=== PATIENT | female | born 1980 | race African-American/Black ===

== ENCOUNTER 2017-11-28 23:48 | Inpatient (IN) ==
[2017-11-29] MEDS ORDERED: DILTIAZEM 50 MG/10 ML VIAL IV ONE (00:10)
[2017-11-29] MEDS ORDERED: ONDANSETRON 4 MG/2 ML VIAL ONE (00:11)
[2017-11-29] MEDS ORDERED: METOPROLOL TARTRATE 5 MG/5 ML VIAL IV ONE (00:21)
[2017-11-29] MEDS ORDERED: METOPROLOL TARTRATE 5 MG/5 ML VIAL IV STA (00:22)
[2017-11-29] MEDS ORDERED: DILTIAZEM 50 MG/10 ML VIAL IV STA (00:22)
[2017-11-29] MEDS ORDERED: ONDANSETRON 4 MG/2 ML VIAL IV STA (00:22)
[2017-11-29 01:00] LABS: PT Patient Result 10.7 SECS; Partial Thromboplastin Time 24.3 SECS (0-40)
[2017-11-29 01:03] LABS: Barbiturates Screen,Urine Negative (Negative); Benzodiazepines Screen,Urine Negative (Negative); Cannabinoid Screen,Urine Negative (Negative); Opiate Screen,Urine Negative (Negative); Phencyclidine Screen,Urine Negative (Negative)
[2017-11-29 01:15] LABS: Troponin I Only 0.027 NG/ML (0.00-0.045)
[2017-11-29 01:16] LABS: Basophils % 0.1 % (0.0-0.8); Eosinophils % 0.4 % (0.00-10.9); Hematocrit 22.3 VOL% (35.7-47.0); Immature Granulocytes % 0.5 %; Immature Granulocytes Absolute 0.04 #; Lymphocytes # 1.7 10*3/uL (1.4-4.0); Lymphocytes % 21.4 % (21.3-54.2); Mean Corpuscular HGB Conc 26.5 GM/DL (32-36); Mean Corpuscular Hemoglobin 16 PG (27-34); Mean Corpuscular Volume 60.9 FL (87-102); Mean Platelet Volume 9.9 FL (9.6-12.0); Monocytes # 0.7 10*3/uL (0.11-0.8); Monocytes % 8.1 % (1.7-12.7); Neutrophils # 5.6 10*3/uL (1.4-7.4); Neutrophils % 69.5 % (38.7-73.9); Platelet Count 435 T/CUMM (130-400); Red Blood Count 3.66 MC/CUMM (3.8-5.5); Red Cell Distribution Width 21.3 % (9.3-17.3)
[2017-11-29 01:19] LABS: Alanine Aminotransferase 11 U/L (13-56); Albumin 3.2 G/DL (3.4-5.0); Alkaline Phosphatase 70 U/L (45-117); Aspartate Amino Transferase 15 U/L (0-37); Bilirubin,Total < 0.39 MG/DL (0.2-1.0); Blood Urea Nitrogen 14 MG/DL (7-18); Calcium 8.4 MG/DL (8.5-10.1); Glucose 96 MG/DL (74-106); Osmolality,Calculated 286.8 MOS/KG (273-304); Potassium 3.7 MMOL/L (3.5-5.1); Sodium 144 MMOL/L (136-145); Total Protein 7.4 G/DL (6.4-8.3)
[2017-11-29 01:22] LABS: Hemoglobin 5.9 GM/DL (12.0-16.0)
[2017-11-29 01:25] LABS: Elliptocytes 1+
[2017-11-29 01:26] LABS: Platelet Estimate Normal
[2017-11-29 01:27] LABS: Hypochromasia 2+; Microcytosis 2+; Target Cells Few
[2017-11-29 01:31] LABS: Anisocytosis 2+
[2017-11-29] MEDS ORDERED: ONDANSETRON 4 MG/2 ML VIAL IV PRN (02:41)
[2017-11-29] MEDS ORDERED: SODIUM CHLORIDE 0.9% 1,000 ML IV PRN ×2 (02:41→03:54)
[2017-11-29 07:48] LABS: Calcium 8.6 MG/DL (8.5-10.1); Osmolality,Calculated 281.3 MOS/KG (273-304); Potassium 4.2 MMOL/L (3.5-5.1)
[2017-11-29 08:04] LABS: Free T4 (Free Thyroxine) 0.88 NG/DL (0.76-1.46); Risk Ratio 1.92; Thyroid Stimulating Hormone 2.14 uIU/ml (0.358-3.74); VLDL CHOLESTEROL 14.8 MG/DL
[2017-11-29 08:34] LABS: Folate 14.6 NG/ML (5.4-24.0); Vitamin B12 369 PG/ML (211-911)
[2017-11-29] MEDS: ENOXAPARIN 40 MG/0.4 ML SYRINGE SUBCUT SCH (10:19)
[2017-11-29 11:55] LABS: Basophils % 0.1 % (0.0-0.8); Eosinophils % 0.4 % (0.00-10.9); Hematocrit 26.8 VOL% (35.7-47.0); Immature Granulocytes % 0.3 %; Immature Granulocytes Absolute 0.02 #; Lymphocytes # 1.9 10*3/uL (1.4-4.0); Lymphocytes % 26.9 % (21.3-54.2); Mean Corpuscular Hemoglobin 18 PG (27-34); Mean Corpuscular Volume 64.4 FL (87-102); Mean Platelet Volume 9.7 FL (9.6-12.0); Monocytes # 0.7 10*3/uL (0.11-0.8); Monocytes % 9.3 % (1.7-12.7); NRBC # 0.02 10*3/uL; Neutrophils # 4.5 10*3/uL (1.4-7.4); Platelet Count 453 T/CUMM (130-400); Red Blood Count 4.16 MC/CUMM (3.8-5.5); Red Cell Distribution Width 25.2 % (9.3-17.3); White Blood Count 7.2 T/CUMM (4-12)
[2017-11-29 11:58] LABS: Hemoglobin 7.5 GM/DL (12.0-16.0)
[2017-11-29] MEDS: METOPROLOL TARTRATE 25 MG TABLET PO SCH ×2 (12:08→21:54)
[2017-11-29 12:15] LABS: Eosinophils 1 % (0-10); Lymphocytes 30 % (20-55); Segmented Neutrophils 61 % (50-85); Total Cells Counted 100
[2017-11-29 12:16] LABS: Giant Platelets Few; Hypochromasia 1+; Ovalocytes Slight; Platelet Estimate Adequate
[2017-11-29 13:03] LABS: Sedimentation Rate-Westergren 38 MM/HR (0-20)
[2017-11-29] MEDS: FERROUS SULFATE 325 MG TABLET PO SCH (21:54)
[2017-11-30 05:21] LABS: Basophils % 0.2 % (0.0-0.8); Eosinophils # 0.1 10*3/uL (0.0-0.87); Eosinophils % 0.8 % (0.00-10.9); Hemoglobin 6.7 GM/DL (12.0-16.0); Immature Granulocytes % 0.6 %; Immature Granulocytes Absolute 0.04 #; Lymphocytes # 1.5 10*3/uL (1.4-4.0); Lymphocytes % 23.2 % (21.3-54.2); Mean Corpuscular HGB Conc 26.8 GM/DL (32-36); Mean Corpuscular Hemoglobin 18 PG (27-34); Mean Corpuscular Volume 65.6 FL (87-102); Mean Platelet Volume 9.7 FL (9.6-12.0); Monocytes # 0.5 10*3/uL (0.11-0.8); Monocytes % 7.6 % (1.7-12.7); NRBC # 0.02 10*3/uL; Neutrophils # 4.3 10*3/uL (1.4-7.4); Neutrophils % 67.6 % (38.7-73.9); Platelet Count 390 T/CUMM (130-400); Red Blood Count 3.81 MC/CUMM (3.8-5.5); Red Cell Distribution Width 24.5 % (9.3-17.3); White Blood Count 6.3 T/CUMM (4-12)
[2017-11-30 05:54] LABS: Calcium 7.8 MG/DL (8.5-10.1); Osmolality,Calculated 277.5 MOS/KG (273-304); Potassium 4.2 MMOL/L (3.5-5.1)
[2017-11-30 06:00] LABS: % Iron Saturation 42.9 % (18-50); Ferritin 2.2 ng/ml (8-252)
[2017-11-30 06:06] LABS: Folate 13.4 NG/ML (5.4-24.0); Vitamin B12 361 PG/ML (211-911)
[2017-11-30 07:07] LABS: Sedimentation Rate-Westergren 42 MM/HR (0-20)
[2017-11-30] MEDS ORDERED: SODIUM CHLORIDE 0.9% 1,000 ML IV PRN ×2 (08:09→09:24)
[2017-11-30] MEDS: METOPROLOL TARTRATE 25 MG TABLET PO SCH (08:59)
[2017-11-30] MEDS: FERROUS SULFATE 325 MG TABLET PO SCH ×2 (08:59→20:40)
[2017-11-30] MEDS: ENOXAPARIN 40 MG/0.4 ML SYRINGE SUBCUT SCH (08:59)
[2017-11-30] MEDS: METOPROLOL TARTRATE 50 MG TABLET PO SCH (20:40)
[2017-12-01 01:15] LABS: Basophils % 0.2 % (0.0-0.8); Eosinophils # 0.1 10*3/uL (0.0-0.87); Eosinophils % 1.3 % (0.00-10.9); Hematocrit 28.4 VOL% (35.7-47.0); Immature Granulocytes Absolute 0.08 #; Lymphocytes # 2.3 10*3/uL (1.4-4.0); Lymphocytes % 27.9 % (21.3-54.2); Mean Corpuscular HGB Conc 28.2 GM/DL (32-36); Mean Corpuscular Hemoglobin 19 PG (27-34); Mean Corpuscular Volume 67.8 FL (87-102); Mean Platelet Volume 9.9 FL (9.6-12.0); Monocytes # 0.8 10*3/uL (0.11-0.8); Monocytes % 9.9 % (1.7-12.7); NRBC # 0.02 10*3/uL; Neutrophils # 4.9 10*3/uL (1.4-7.4); Neutrophils % 59.7 % (38.7-73.9); Platelet Count 365 T/CUMM (130-400); Red Blood Count 4.19 MC/CUMM (3.8-5.5); Red Cell Distribution Width 26.3 % (9.3-17.3); White Blood Count 8.2 T/CUMM (4-12)
[2017-12-01 03:34] LABS: Eosinophils 1 % (0-10); Lymphocytes 25 % (20-55); Nucleated Red Blood Cells 1 (0-5); Platelet Estimate Normal; Segmented Neutrophils 65 % (50-85); Total Cells Counted 100
[2017-12-01 03:35] LABS: Elliptocytes Few; Hypochromasia 1+; Microcytosis 1+
[2017-12-01 06:13] LABS: Basophils % 0.3 % (0.0-0.8); Eosinophils # 0.1 10*3/uL (0.0-0.87); Eosinophils % 1.7 % (0.00-10.9); Hematocrit 27.2 VOL% (35.7-47.0); Immature Granulocytes % 0.6 %; Immature Granulocytes Absolute 0.04 #; Lymphocytes # 1.9 10*3/uL (1.4-4.0); Lymphocytes % 29.2 % (21.3-54.2); Mean Corpuscular HGB Conc 27.9 GM/DL (32-36); Mean Corpuscular Hemoglobin 19 PG (27-34); Mean Corpuscular Volume 68.9 FL (87-102); Mean Platelet Volume 10.2 FL (9.6-12.0); Monocytes # 0.6 10*3/uL (0.11-0.8); Monocytes % 8.6 % (1.7-12.7); NRBC # 0.02 10*3/uL; Neutrophils # 3.9 10*3/uL (1.4-7.4); Neutrophils % 59.6 % (38.7-73.9); Platelet Count 353 T/CUMM (130-400); Red Blood Count 3.95 MC/CUMM (3.8-5.5); Red Cell Distribution Width 26.2 % (9.3-17.3); White Blood Count 6.6 T/CUMM (4-12)
[2017-12-01 06:15] LABS: Osmolality,Calculated 281.3 MOS/KG (273-304); Potassium 4.1 MMOL/L (3.5-5.1)
[2017-12-01 06:21] LABS: Hemoglobin 7.6 GM/DL (12.0-16.0)
[2017-12-01 06:42] LABS: Eosinophils 1 % (0-10); Hypochromasia 1+; Lymphocytes 29 % (20-55); Microcytosis 2+; Platelet Estimate Normal; Segmented Neutrophils 68 % (50-85); Total Cells Counted 100
[2017-12-01 06:43] LABS: Elliptocytes Few; Polychromasia Slight
[2017-12-01] MEDS: ENOXAPARIN 40 MG/0.4 ML SYRINGE SUBCUT SCH (08:04)
[2017-12-01] MEDS: METOPROLOL TARTRATE 50 MG TABLET PO SCH ×2 (08:04→22:02)
[2017-12-01] MEDS: FERROUS SULFATE 325 MG TABLET PO SCH ×3 (08:04→22:02)
[2017-12-01] MEDS: amLODIPine 5 MG TABLET PO SCH (12:07)
[2017-12-01] MEDS ORDERED: ACETAMINOPHEN 325 MG TABLET PO PRN (13:04)
[2017-12-01] MEDS ORDERED: SODIUM CHLORIDE 0.9% 1,000 ML IV PRN (14:21)
[2017-12-01] MEDS: LISINOPRIL 10 MG TABLET PO SCH (15:52)
[2017-12-01] MEDS ORDERED: rOPINIRole 0.25 MG TABLET PO SCH (21:00)
[2017-12-01] MEDS: ASCORBIC ACID 500 MG TABLET PO SCH (22:02)
[2017-12-02 05:19] LABS: Hematocrit 30.8 VOL% (35.7-47.0)
[2017-12-02 05:57] LABS: Thyroid Stimulating Hormone 2.3 uIU/ml (0.358-3.74)
[2017-12-02] MEDS: amLODIPine 5 MG TABLET PO SCH (08:13)
[2017-12-02] MEDS: METOPROLOL TARTRATE 50 MG TABLET PO SCH (08:13)
[2017-12-02] MEDS: ASCORBIC ACID 500 MG TABLET PO SCH (08:13)
[2017-12-02] MEDS: FERROUS SULFATE 325 MG TABLET PO SCH ×2 (08:13→15:30)
[2017-12-02] MEDS: LISINOPRIL 10 MG TABLET PO SCH (08:13)
[2017-12-02 15:58] VITALS: BP 192/98
[2017-12-02] MEDS ORDERED: LOSARTAN 50 MG TABLET PO SCH (21:00)
[2017-12-03] MEDS ORDERED: LISINOPRIL 20 MG TABLET PO SCH (09:00)
== END 2017-12-02 15:44 | disposition home or self-care (01) | DRG 309 ==
LOC: N.ED 23:48 → N.EDINP 11-29 02:42 → N.TELEN 11-29 03:28
PROVIDERS: ADMIT Hospitalist; ATTEND Hospitalist

== ENCOUNTER 2018-09-30 18:39 | Inpatient (IN) ==
[2018-09-30 19:43] LABS: Basophils % 0.2 % (0.0-0.8); Eosinophils % 0.2 % (0.00-10.9); Hematocrit 21.3 VOL% (35.7-47.0); Immature Granulocytes % 0.8 %; Immature Granulocytes Absolute 0.08 #; Lymphocytes # 1.6 10*3/uL (1.4-4.0); Lymphocytes % 15.8 % (21.3-54.2); Mean Corpuscular HGB Conc 25.8 GM/DL (32-36); Mean Corpuscular Hemoglobin 16 PG (27-34); Mean Corpuscular Volume 60.3 FL (87-102); Mean Platelet Volume 9.5 FL (9.6-12.0); Monocytes # 0.5 10*3/uL (0.11-0.8); Monocytes % 5.4 % (1.7-12.7); Neutrophils # 7.6 10*3/uL (1.4-7.4); Neutrophils % 77.6 % (38.7-73.9); Platelet Count 467 T/CUMM (130-400); Red Blood Count 3.53 MC/CUMM (3.8-5.5); Red Cell Distribution Width 21.8 % (9.3-17.3); White Blood Count 9.8 T/CUMM (4-12)
[2018-09-30 20:01] LABS: Alanine Aminotransferase 11 U/L (13-56); Albumin 3.3 G/DL (3.4-5.0); Alkaline Phosphatase 73 U/L (45-117); Aspartate Amino Transferase 11 U/L (0-37); Bilirubin,Total < 0.39 MG/DL (0.2-1.0); Blood Urea Nitrogen 11 MG/DL (7-18); Calcium 8.3 MG/DL (8.5-10.1); Glucose 106 MG/DL (74-106); Potassium 3.6 MMOL/L (3.5-5.1); Sodium 143 MMOL/L (136-145); Total Protein 7.6 G/DL (6.4-8.3)
[2018-09-30 20:10] LABS: Hemoglobin 5.5 GM/DL (12.0-16.0)
[2018-09-30] MEDS ORDERED: SODIUM CHLORIDE 0.9% 1,000 ML IV PRN ×2 (20:12→22:41)
[2018-09-30 20:23] LABS: Barbiturates Screen,Urine Negative (Negative); Benzodiazepines Screen,Urine Negative (Negative); Cannabinoid Screen,Urine Negative (Negative); Opiate Screen,Urine Negative (Negative); Phencyclidine Screen,Urine Negative (Negative)
[2018-09-30] MEDS ORDERED: ONDANSETRON 4 MG/2 ML VIAL IV PRN (20:24)
[2018-09-30] MEDS ORDERED: ACETAMINOPHEN 325 MG TABLET PO PRN (20:24)
[2018-09-30 20:27] LABS: Ovalocytes Few
[2018-09-30 20:28] LABS: Anisocytosis 1+
[2018-09-30 20:29] LABS: Microcytosis 2+; Platelet Estimate Normal
[2018-09-30 20:31] LABS: Hypochromasia 3+
[2018-09-30] MEDS ORDERED: hydrALAZINE 20 MG/1 ML VIAL IV STA (20:59)
[2018-09-30] MEDS: DEXTROSE 5% LACTATED RINGERS 1,000 ML IV SCH (23:27)
[2018-10-01] MEDS: DEXTROSE 5% LACTATED RINGERS 1,000 ML IV SCH (04:56)
[2018-10-01 06:42] LABS: Basophils % 0.1 % (0.0-0.8); Eosinophils # 0.1 10*3/uL (0.0-0.87); Eosinophils % 1.2 % (0.00-10.9); Hematocrit 22.6 VOL% (35.7-47.0); Immature Granulocytes % 0.7 %; Immature Granulocytes Absolute 0.05 #; Lymphocytes # 1.4 10*3/uL (1.4-4.0); Lymphocytes % 19.6 % (21.3-54.2); Mean Corpuscular HGB Conc 27.9 GM/DL (32-36); Mean Corpuscular Hemoglobin 18 PG (27-34); Mean Corpuscular Volume 64.6 FL (87-102); Mean Platelet Volume 9.6 FL (9.6-12.0); Monocytes # 0.4 10*3/uL (0.11-0.8); Monocytes % 5.9 % (1.7-12.7); NRBC # 0.02 10*3/uL; Neutrophils % 72.5 % (38.7-73.9); Platelet Count 351 T/CUMM (130-400); Red Cell Distribution Width 25.2 % (9.3-17.3); White Blood Count 6.9 T/CUMM (4-12)
[2018-10-01 06:44] LABS: Hemoglobin 6.3 GM/DL (12.0-16.0)
[2018-10-01 07:11] LABS: Hypochromasia 2+; Microcytosis 1+; Ovalocytes Slight; Platelet Estimate Adequate
[2018-10-01] MEDS ORDERED: SODIUM CHLORIDE 0.9% 1,000 ML IV PRN ×2 (07:29)
[2018-10-01] MEDS ORDERED: ACETAMINOPHEN 325 MG TABLET PO PRN (07:29)
[2018-10-01] MEDS ORDERED: FUROSEMIDE 20 MG/2 ML VIAL IV PRN (07:29)
[2018-10-01] MEDS ORDERED: diphenhydrAMINE CAP 25 MG CAPSULE PO PRN (07:29)
[2018-10-01] MEDS: PANTOPRAZOLE 40 MG TABLET PO SCH (08:53)
[2018-10-01 09:45] LABS: % Iron Saturation 4.9 % (18-50); Ferritin 2.1 ng/ml (8-252)
[2018-10-01] MEDS: LOSARTAN 50 MG TABLET PO SCH (09:58)
[2018-10-01] MEDS: CARVEDILOL 3.125 MG TABLET PO SCH ×2 (09:59→20:46)
[2018-10-01] MEDS ORDERED: IRON SUCROSE 500 MG in SODIUM CHLORIDE 0.9% 100 ML IV ONE (16:00)
[2018-10-01 18:17] LABS: Hematocrit 29.8 VOL% (35.7-47.0); Hemoglobin 8.7 GM/DL (12.0-16.0)
[2018-10-02] MEDS: PANTOPRAZOLE 40 MG TABLET PO SCH (08:32)
[2018-10-02] MEDS: LOSARTAN 50 MG TABLET PO SCH (08:32)
[2018-10-02] MEDS: CARVEDILOL 3.125 MG TABLET PO SCH (08:32)
[2018-10-02 12:31] VITALS: BP 154/93
== END 2018-10-02 13:25 | disposition home or self-care (01) | DRG 812 ==
LOC: N.EDINP 18:39 → N.ED 18:39 → INTOOBSV 20:24 → OBSVTOIN 20:24 → N.OB 21:28 → N.TELES 22:36
PROVIDERS: ADMIT Internal Medicine Infectious Disease; ATTEND Internal Medicine Infectious Disease